=== PATIENT | female | born 1960 | race Caucasian/White ===

== ENCOUNTER 2017-03-14 01:23 | Emergency (ER) | payer OTHER ==
[~2017-03-14] VITALS: Ht 162.6 cm; Wt 75.0 kg
[~2017-03-14 01:23] MED LIST: GABA300C16 PO; GLIP-95 PO; LISI20TA11 PO; METF500T4 PO
[2017-03-14 01:34] VITALS: Ht 162.6 cm; Wt 75.0 kg
[2017-03-14] MEDS ORDERED: KETOROLAC 30 MG INJ IM STA (02:54)
[2017-03-14] MEDS ORDERED: OXYCODONE/ACETAMINOPHEN (5/325) TAB PO ONE (03:00)
[2017-03-14] MEDS ORDERED: KETOROLAC 30 MG INJ IV ONE (03:23)
[2017-03-14 03:30] LABS: ADD UMIC NO; UR ASCORBIC ACID NEGATIVE (NEGATIVE); UR BILIRUBIN (Dip) NEGATIVE (NEGATIVE); UR BLOOD (Dip) NEGATIVE (NEGATIVE); UR CLARITY CLEAR (CLEAR); UR COLOR YELLOW (YELLOW); UR GLUCOSE (Dip) NEGATIVE (NEGATIVE); UR KETONES (Dip) NEGATIVE (NEGATIVE); UR LEUKOCYTE ESTERASE (Dip) NEGATIVE Leu/ul (NEGATIVE); UR NITRITE (Dip) NEGATIVE (NEGATIVE); UR RBC 0 /HPF (0-5); UR SPECIFIC GRAVITY (Dip) 1.009 (1.003-1.030); UR TOTAL PROTEIN (Dip) NEGATIVE (NEGATIVE); UR UROBILINOGEN (Dip) NEGATIVE (NEGATIVE)
--- NOTE | 2017-03-14 04:08 | RADRPT ---
PROCEDURE: CT Abdomen and pelvis without contrast. CLINICAL INDICATION: Abdominal pain. TECHNIQUE: CT scan of the abdomen and pelvis was performed on a multi-detector high-resolution CT scanner. Contiguous axial images were obtained from the lung bases to the ischial tuberosities wit hout intravenous contrast. Coronal and sagittal reformatted images were also obtained. Images were reviewed on the PACS workstation. One or more of the following dose reduction techniques were used: - Automated exposure control. - Adjustment of the mA and/or kV according to patient size. - Use of iterative reconstruction technique. Exam CTD/vol = 13.11 mGy. Total exam DLP = 795.51 mGy-cm. COMPARISON: None. FINDINGS: Evaluation of the lung bases demonstrates minimal bibasilar atelectasis. Abdomen: The liver is normal in size. There is no focal mass or dilatation of the biliary tree. T he gallbladder is not distended. The spleen, pancreas and bilateral adrenal glands are within sarita l limits. Bilateral kidneys are normal in size with no contour deforming mass identified. There is a 1 mm calculus within the lower pole of the right kidney. There is no radiopaque ureteral calculu s identified. There is no hydronephrosis or hydroureter. There is no retroperitoneal adenopathy. The abdominal aorta is of normal caliber with scattered atherosclerotic calcifications. There is moderate retained stool within the colon. There is no bowel obstruction or free air. A no rmal appendix is identified. There are scattered colonic diverticuli without evidence of diverticul itis. There is no ascites. Pelvis: The bladder is unremarkable. There are partially calcified uterine fibroids. There is a s mall left inguinal hernia containing fat. There is no significant pelvic adenopathy or free fluid. Evaluation of the osseous structures demonstrates no suspicious lytic or blastic lesion. IMPRESSION: No acute abnormality identified within the abdomen and pelvis. Moderate retained stool within the colon. Scattered colonic diverticuli without evidence of diverticulitis. Nonobstructing right renal calculus. Partially calcified uterine fibroids. Small left inguinal hernia containing fat. Vascular calcifications reflective of atherosclerosis. .Boby Suarez MD, Date Time Electronically viewed and signed by .Boby Suarez MD, on 03/14/2017 04:08 .T/
[2017-03-14 04:18] LABS: ABNORMAL IP MESSAGE 1; BASOPHIL # 0.1 10^3/ul (0.0-0.1); BASOPHILS % 0.6 % (0.0-2.0); EOSINOPHILS # 0.3 10^3/ul (0.0-0.5); EOSINOPHILS % 2.7 % (0.0-7.0); HEMATOCRIT 39.8 % (37.0-47.0); HEMOGLOBIN 13.1 g/dl (12.0-16.0); LYMPHOCYTES # 5.4 10^3/ul (0.8-2.9); LYMPHOCYTES % 52.3 % (15.0-51.0); MEAN CORPUSCULAR HEMOGLOBIN 30.3 pg (29.0-33.0); MEAN CORPUSCULAR HGB CONC 32.9 g/dl (32.0-37.0); MEAN CORPUSCULAR VOLUME 91.9 fl (82.0-101.0); MEAN PLATELET VOLUME 10.4 fl (7.4-10.4); MONOCYTE # 0.7 10^3/ul (0.3-0.9); MONOCYTES % 6.4 % (0.0-11.0); NEUTROPHIL # 3.9 10^3/ul (1.6-7.5); NEUTROPHILS % 37.8 % (39.0-77.0); PLATELET COUNT 457 10^3/UL (140-415); RED BLOOD COUNT 4.33 10^6/ul (4.20-5.40); RED CELL DISTRIBUTION WIDTH 12.5 % (11.5-14.5); WHITE BLOOD COUNT 10.4 10^3/ul (4.8-10.8)
[2017-03-14 04:22] LABS: POSITIVE DIFF @See below
[2017-03-14 04:36] LABS: ALBUMIN/GLOBULIN RATIO 1.25; BILIRUBIN,INDIRECT 0.2 mg/dl (0-1.1); BILIRUBIN,TOTAL 0.2 mg/dl (0.2-1.3); CALCIUM 10.1 mg/dl (8.4-10.2); CREATININE 0.69 mg/dl (0.44-1.00); POTASSIUM 3.9 mmol/L (3.5-5.1)
[2017-03-14] MEDS ORDERED: IBUP-1542 PO (04:42)
[2017-03-14 05:06] VITALS: BP 145/82; PULSE 71; RESP 18; TEMP 98.1
[2017-03-14] MEDS ORDERED: OXYC-279 PO (05:12)
--- NOTE | 2017-03-14 05:21 | ERD ---
ER Documentation Chief Complaint Date/Time DATE: 03/14/17 TIME: 05:12 Chief Complaint lower abdominal x1 week, No N/V. HPI 56-year-old woman presents with 1 week of lower abdominal pain, in the mid pelvic region, constant, nonexertional nonradiating. She has had no nausea or vomiting, no diarrhea, no blood per rectum or melena, no dysuria, no chest pain or shortness of breath, no weight loss. ROS All systems reviewed and are negative except as per history of present illness. Medications Home Meds Active Scripts Oxycodone HCl/Acetaminophen (Percocet 5-325 mg Tablet) 1 Each Tablet, 1 EACH PO TID for PAIN, #12 TAB Prov:YAIR MOYA MD 03/14/17 Ibuprofen* (Ibuprofen*) 600 Mg Tablet, 600 MG PO Q8 for PAIN AND/OR INFLAMMATION , #30 TAB Prov:YAIR MOYA MD 03/14/17 Gabapentin* (Gabapentin*) 300 Mg Capsule, 300 MG PO TID, #30 CAP On day 1, take 1 tab once a day. On day 2, take 1 tab twice a day. Then 1 tab Three times a day. Prov:LAURA GRIFFITH VOICE INTERCEPT TECHNICIAN 08/05/16 Reported Medications Metformin Hcl* (Metformin Hcl*) 500 Mg Tablet, 500 MG PO WITH BREAKFAST DINNE, # 60 TAB 08/07/16 Lisinopril* (Lisinopril*) 20 Mg Tablet, 20 MG PO DAILY, #30 TAB 08/07/16 Glipizide* (Glipizide*) 10 Mg Tablet, 10 MG PO DAILY, TAB 08/07/16 Allergies Allergies: Coded Allergies: No Known Allergies (Unverified Allergy, Unknown, 03/14/17) PMhx/Soc Hypertension, diabetes mellitus History of Surgery: No Anesthesia Reaction: No Hx Neurological Disorder: No Hx Respiratory Disorders: No Hx Cardiac Disorders: No Hx Psychiatric Problems: No Hx Miscellaneous Medical Probl: Yes (diabetes type 2) Hx Alcohol Use: No Hx Substance Use: No Hx Tobacco Use: No Smoking Status: Never smoker FmHx Family History: No diabetes Physical Exam Vitals Vital Signs Date Time Temp Pulse Resp B/P Pulse Ox O2 Delivery O2 Flow Rate FiO2 03/14/17 05:06 98.1 71 18 145/82 99 Room Air 03/14/17 01:34 97.0 65 20 180/96 98 Physical Exam GENERAL: Well-developed, well-nourished, mild pain, afebrile HEENT: Moist mucous membranes, pink conjunctiva, no cervical spine tenderness or step-off deformities, no goiter, no jaundice or icterus, extraocular movements intact without pain. No submandibular induration, and no pharyngeal erythema NEURO: Alert and oriented 3, cranial nerves II through XII intact bilaterally, pupils equal round reactive to light, no focal deficits or facial asymmetry, sensation intact distally Strength 5/5 in upper and lower extremities bilaterally CARDIAC: Regular rate and rhythm, no murmurs rubs or gallops LUNGS: Clear bilaterally no wheezing crackles or stridor ABDOMEN: Soft nontender, no guarding, no rigidity, no rebound, no psoas sign no obturator sign. Normoactive bowel sounds SKIN: Warm and dry to touch, no abrasions, contusions, or hematomas, no lacerations, no ecchymosis, no target lesions, and without ulcers EXTREMITIES: No clubbing cyanosis or edema, calves are bilaterally symmetrical, no Homans sign, no popliteal cord sign. Distal pulses equal and bilateral PSYCH: Normal affect without agitation or irritability Result Diagram: 03/14/17 0340 03/14/17 0340 Results 24 hrs Laboratory Tests Test 03/14/17 03:00 03/14/17 03:40 Urine Color YELLOW Urine Clarity CLEAR Urine pH 6.0 Urine Specific [place] 1.009 Urine Ketones NEGATIVEmg/dL Urine Nitrite NEGATIVEmg/dL Urine Bilirubin NEGATIVEmg/dL Urine Urobilinogen NEGATIVEmg/dL Urine Leukocyte Esterase NEGATIVELeu/ul Urine Microscopic RBC 0/HPF Urine Microscopic WBC 1/HPF Urine Hemoglobin NEGATIVEmg/dL Urine Glucose NEGATIVEmg/dL Urine Total Protein NEGATIVEmg/dl White Blood Count 10.410^3/ul Red Blood Count 4.3310^6/ul Hemoglobin 13.1g/dl Hematocrit 39.8% Mean Corpuscular Volume 91.9fl Mean Corpuscular Hemoglobin 30.3pg Mean Corpuscular Hemoglobin Concent 32.9g/dl Red Cell Distribution Width 12.5% Platelet Count 31535^3/UL Mean Platelet Volume 10.4fl Neutrophils % 37.8% Lymphocytes % 52.3% Monocytes % 6.4% Eosinophils % 2.7% Basophils % 0.6% Nucleated Red Blood Cells % 0.0/100WBC Neutrophils # 3.910^3/ul Lymphocytes # 5.410^3/ul Monocytes # 0.710^3/ul Eosinophils # 0.310^3/ul Basophils # 0.110^3/ul Nucleated Red Blood Cells # 0.010^3/ul Sodium Level 142mmol/L Potassium Level 3.9mmol/L Chloride Level 98mmol/L Carbon Dioxide Level 27mmol/L Anion Gap 21 Blood Urea Nitrogen 14mg/dl Creatinine 0.69mg/dl Glucose Level 113mg/dl Calcium Level 10.1mg/dl Total Bilirubin 0.2mg/dl Direct Bilirubin 0.00mg/dl Indirect Bilirubin 0.2mg/dl Aspartate Amino Transf (AST/SGOT) 34IU/L Alanine Aminotransferase (ALT/SGPT) 32IU/L Alkaline Phosphatase 171IU/L Total Protein 9.0g/dl Albumin 5.0g/dl Globulin 4.00g/dl Albumin/Globulin Ratio 1.25 Lipase 236U/L Current Medications Medications (Trade) Dose Ordered Sig/Damian Route PRN Reason Start Time Stop Time Status Last Admin Dose Admin Ketorolac Tromethamine (Toradol) 30 mg ONCE STAT IM 03/14/17 02:54 03/14/17 02:55 DC Oxycodone/ Acetaminophen (Percocet (5/ 325)) 1 tab ONCE ONCE PO 03/14/17 03:00 03/14/17 03:01 DC 03/14/17 03:07 Ketorolac Tromethamine (Toradol) 30 mg ONCE ONCE IV 03/14/17 03:23 03/14/17 03:24 DC 03/14/17 03:10 Procedures/MDM IV line was established patient was placed on director cardiac rhythm strip revealed a sinus rhythm at about 70 bpm with upright P and T waves. Patient was afebrile. I administered Toradol 15 mg IV and Percocet [address] scan of the abdomen and pelvis was performed with multiple findings which revealed umbilical hernia, right renal calculus, calcified fibroid uterus, diverticulosis, although there was no acute inflammatory or infectious pathology noted. CBC and electrolytes are normal, liver function tests were normal. Differential diagnoses considered, included but not limited to acute coronary syndrome, pulmonary embolism, aortic dissection, abdominal aortic aneurysm, sepsis, stroke, meningitis, encephalitis, pneumonia, appendicitis, cholecystitis , bowel obstruction, pyelonephritis, nephrolithiasis, cystitis, as well as metabolic, hematologic, and electrolyte abnormalities. As well as abscess, cellulitis, fractures, and dislocations. Patient feels much better at this time, and vital signs are normal, symptoms have improved. I did give strict instructions to return to the ED if symptoms continue or worsen, patient will otherwise follow-up with primary care physician. Patient understood instructions and agreed to plan. Disclaimer: Inadvertent spelling and grammatical errors are likely due to EHR/ dictation software use and do not reflect on the overall quality of patient care. Also, please note that the electronic time recorded on this note does not necessarily reflect the actual time of the patient encounter. Departure Diagnosis: Primary Impression: Inguinal hernia Obstruction and gangrene presence: without obstruction or gangrene Laterality : unilateral Recurrence: recurrent Qualified Code: K40.91 - Unilateral recurrent inguinal hernia without obstruction or gangrene Additional Impression: Abdominal pain Abdominal location: lower abdomen, unspecified Qualified Code: R10.30 - Lower abdominal pain Condition: Good Patient Instructions: Abdominal Pain, Hernia (Inguinal, Ventral, Umbilical) Referrals: CHARLES DEGROOT DAVID MD Mar 14, 2017 05:21
== END 2017-03-14 05:14 | disposition home or self-care (01) ==
LOC: E/R 01:23
DX: K40.91 Unilateral inguinal hernia, without obstruction or gangrene, recurrent (principal); E11.9 Type 2 diabetes mellitus without complications; I10 Essential (primary) hypertension; Z79.84 Long term (current) use of oral hypoglycemic drugs
CPT/HCPCS: 36415; 74176; 80053; 81003; 83690; 85025; 96374; J1885; Z7502; Z7610

== ENCOUNTER 2017-05-04 17:52 | Emergency (ER) | payer OTHER ==
[~2017-05-04] VITALS: Ht 167.6 cm; Wt 75.0 kg
[~2017-05-04 17:52] MED LIST changes: +ACET500C5 PO; +IBUP-1542 PO; +OXYC-279 PO
[2017-05-04 18:03] VITALS: Ht 167.6 cm; Wt 75.0 kg
[2017-05-04] MEDS ORDERED: SOD CHLORIDE 0.9% 1,000 ML IV STA (21:37)
[2017-05-04 22:37] LABS: BASOPHIL # 0.1 10^3/ul (0.0-0.1); BASOPHILS % 0.5 % (0.0-2.0); EOSINOPHILS # 0.2 10^3/ul (0.0-0.5); EOSINOPHILS % 1.7 % (0.0-7.0); HEMATOCRIT 36.7 % (37.0-47.0); HEMOGLOBIN 12.3 g/dl (12.0-16.0); LYMPHOCYTES # 4.6 10^3/ul (0.8-2.9); LYMPHOCYTES % 45.4 % (15.0-51.0); MEAN CORPUSCULAR HEMOGLOBIN 31.1 pg (29.0-33.0); MEAN CORPUSCULAR HGB CONC 33.5 g/dl (32.0-37.0); MEAN CORPUSCULAR VOLUME 92.9 fl (82.0-101.0); MEAN PLATELET VOLUME 9.5 fl (7.4-10.4); MONOCYTE # 0.5 10^3/ul (0.3-0.9); MONOCYTES % 5.1 % (0.0-11.0); NEUTROPHIL # 4.7 10^3/ul (1.6-7.5); PLATELET COUNT 483 10^3/UL (140-415); RED BLOOD COUNT 3.95 10^6/ul (4.20-5.40)
[2017-05-04 22:50] LABS: ADD UMIC YES; UR ASCORBIC ACID NEGATIVE (NEGATIVE); UR BILIRUBIN (Dip) NEGATIVE (NEGATIVE); UR BLOOD (Dip) NEGATIVE (NEGATIVE); UR CLARITY SLIGHTLY CLOUDY (CLEAR); UR COLOR AMBER (YELLOW); UR GLUCOSE (Dip) 1+ mg/dL (NEGATIVE); UR KETONES (Dip) NEGATIVE (NEGATIVE); UR LEUKOCYTE ESTERASE (Dip) NEGATIVE Leu/ul (NEGATIVE); UR MUCUS FEW /HPF (NONE SEEN); UR NITRITE (Dip) NEGATIVE (NEGATIVE); UR RBC 1 /HPF (0-5); UR SPECIFIC GRAVITY (Dip) 1.026 (1.003-1.030); UR TOTAL PROTEIN (Dip) 1+ mg/dl (NEGATIVE); UR UROBILINOGEN (Dip) 1+ mg/dL (NEGATIVE)
[2017-05-04 22:56] LABS: ALBUMIN 4.3 g/dl (3.3-4.9); ALBUMIN/GLOBULIN RATIO 1.3; BILIRUBIN,INDIRECT 0.2 mg/dl (0-1.1); BILIRUBIN,TOTAL 0.2 mg/dl (0.2-1.3); CALCIUM 9.9 mg/dl (8.4-10.2); CREATININE 0.76 mg/dl (0.44-1.00); POTASSIUM 4.5 mmol/L (3.5-5.1); TOTAL PROTEIN 7.6 g/dl (6.1-8.1)
[2017-05-04] MEDS ORDERED: KETOROLAC 30 MG INJ ONE (22:57)
[2017-05-04] MEDS ORDERED: KETOROLAC 30 MG INJ IV ONE (23:00)
[2017-05-04] MEDS ORDERED: IOHEXOL 300MG/ML 150 ML BTL ONE (23:09)
[2017-05-04] MEDS ORDERED: SOD CHLORIDE 0.9% 100 ML ONE (23:09)
--- NOTE | 2017-05-04 23:39 | ERA ---
ER Documentation Chief Complaint Date/Time DATE: 05/04/17 TIME: 23:39 Chief Complaint SEVERE PAIN ON LOWER ABDOMEN, HX OF HERNIA SURGERY 04/30/17 HPI This is a 56-year-old female with a past medical history of diabetes, hypertension and a left inguinal hernia that was repaired 3 days ago is presenting with persistent pain at the incision site. Patient does not endorse any infectious symptoms. She has not had a fever or chills. She denies any increased swelling or redness or induration at the site. She has not noticed any fluctuance or purulence. She endorses pain with movement at the site. She has not been taking her oxycodone regularly throughout the day. She has an appointment scheduled with her surgeon on Saturday, but she wanted to be checked out sooner than this given her pain. ROS All systems reviewed and are negative except as per history of present illness. Medications Home Meds Active Scripts Acetaminophen* (Tylophen*) 500 Mg Capsule, 1 CAP PO Q6H Y for PAIN AND OR ELEVATED TEMP, #20 CAP Prov:FORTINO ALCANTAR PA-C 03/30/17 Oxycodone HCl/Acetaminophen (Percocet 5-325 mg Tablet) 1 Each Tablet, 1 EACH PO TID for PAIN, #12 TAB Prov:YAIR MOYA MD 03/14/17 Ibuprofen* (Ibuprofen*) 600 Mg Tablet, 600 MG PO Q8 for PAIN AND/OR INFLAMMATION , #30 TAB Prov:YAIR MOYA MD 03/14/17 Gabapentin* (Gabapentin*) 300 Mg Capsule, 300 MG PO TID, #30 CAP On day 1, take 1 tab once a day. On day 2, take 1 tab twice a day. Then 1 tab Three times a day. Prov:LAURA GRIFFITH NP 08/05/16 Reported Medications Metformin Hcl* (Metformin Hcl*) 500 Mg Tablet, 500 MG PO WITH BREAKFAST DINNE, # 60 TAB 08/07/16 Lisinopril* (Lisinopril*) 20 Mg Tablet, 20 MG PO DAILY, #30 TAB 08/07/16 Glipizide* (Glipizide*) 10 Mg Tablet, 10 MG PO DAILY, TAB 08/07/16 Allergies Allergies: Coded Allergies: No Known Allergies (Unverified Allergy, Unknown, 05/04/17) PMhx/Soc History of Surgery: Yes (inguinial hernia repair) Anesthesia Reaction: No Hx Neurological Disorder: No Hx Respiratory Disorders: No Hx Psychiatric Problems: No Hx Miscellaneous Medical Probl: Yes (diabetes type 2) Hx Alcohol Use: No Hx Substance Use: No Hx Tobacco Use: No Smoking Status: Never smoker FmHx Family History: diabetes Physical Exam Vitals Vital Signs Date Time Temp Pulse Resp B/P Pulse Ox O2 Delivery O2 Flow Rate FiO2 05/05/17 01:00 61 16 142/97 100 Room Air 05/04/17 23:00 62 17 162/76 100 Room Air 05/04/17 21:40 68 16 162/96 100 Room Air 05/04/17 18:03 98.0 74 20 190/88 99 Physical Exam Const: No apparent distress, well-developed, well-nourished Head: Atraumatic Eyes: Normal Conjunctiva ENT: Normal External Ears, Nose and Mouth. Neck: Full range of motion..~ No meningismus. Resp: Clear to auscultation bilaterally Cardio: Regular rate and rhythm, no murmurs Abd: Soft, non distended. Mild tenderness at her left groin incision site without erythema or induration or crepitus or purulence or edema. Normal bowel sounds Skin: No petechiae or rashes Back: No midline or flank tenderness Ext: No cyanosis, or edema Neur: Awake and alert, normal sensation and strength and coordination Psych: Normal Mood and Affect Result Diagram: 05/04/17219905/04/172199 Results 24 hrs Laboratory Tests Test 05/04/17 22:00 White Blood Count 10.010^3/ul Red Blood Count 3.9510^6/ul Hemoglobin 12.3g/dl Hematocrit 36.7% Mean Corpuscular Volume 92.9fl Mean Corpuscular Hemoglobin 31.1pg Mean Corpuscular Hemoglobin Concent 33.5g/dl Red Cell Distribution Width 12.0% Platelet Count 81982^3/UL Mean Platelet Volume 9.5fl Neutrophils % 47.0% Lymphocytes % 45.4% Monocytes % 5.1% Eosinophils % 1.7% Basophils % 0.5% Nucleated Red Blood Cells % 0.0/100WBC Neutrophils # 4.710^3/ul Lymphocytes # 4.610^3/ul Monocytes # 0.510^3/ul Eosinophils # 0.210^3/ul Basophils # 0.110^3/ul Nucleated Red Blood Cells # 0.010^3/ul Urine Color RUSTY Urine Clarity SLIGHTLY CLOUDY Urine pH 5.0 Urine Specific [place] 1.026 Urine Ketones NEGATIVEmg/dL Urine Nitrite NEGATIVEmg/dL Urine Bilirubin NEGATIVEmg/dL Urine Urobilinogen 1+mg/dL Urine Leukocyte Esterase NEGATIVELeu/ul Urine Microscopic RBC 1/HPF Urine Microscopic WBC 1/HPF Urine Mucus FEW/HPF Urine Hemoglobin NEGATIVEmg/dL Urine Glucose 1+mg/dL Urine Total Protein 1+mg/dl Sodium Level 137mmol/L Potassium Level 4.5mmol/L Chloride Level 99mmol/L Carbon Dioxide Level 28mmol/L Anion Gap 15 Blood Urea Nitrogen 22mg/dl Creatinine 0.76mg/dl Glucose Level 95mg/dl Lactic Acid Level 1.3mmol/L Calcium Level 9.9mg/dl Total Bilirubin 0.2mg/dl Direct Bilirubin 0.00mg/dl Indirect Bilirubin 0.2mg/dl Aspartate Amino Transf (AST/SGOT) 18IU/L Alanine Aminotransferase (ALT/SGPT) 28IU/L Alkaline Phosphatase 117IU/L Total Protein 7.6g/dl Albumin 4.3g/dl Globulin 3.30g/dl Albumin/Globulin Ratio 1.30 Lipase 189U/L Current Medications Medications (Trade) Dose Ordered Sig/Damian Route PRN Reason Start Time Stop Time Status Last Admin Dose Admin Sodium Chloride (NS) 1,000 ml @ 1,000 mls/hr Q1H STAT IV 05/04/17 21:37 05/04/17 22:36 DC 05/04/17 22:06 Ketorolac Tromethamine (Toradol) 30 mg ONCE ONCE IV 05/04/17 23:00 05/04/17 23:01 DC 05/04/17 23:04 Ketorolac Tromethamine (Toradol) 30 mg STK-MED ONCE .ROUTE 05/04/17 22:57 05/04/17 22:58 DC IV Flush 10 ml 10 ml STK-MED ONCE .ROUTE 05/04/17 23:09 05/04/17 23:10 DC 05/04/17 23:20 Sodium Chloride (NS) 100 ml @ ud STK-MED ONCE .ROUTE 05/04/17 23:09 9/16/17 23:10 DC 05/04/17 23:20 Iohexol (Omnipaque 300mg/ ml) 150 ml STK-MED ONCE .ROUTE 05/04/17 23:09 05/04/17 23:10 DC 05/04/17 23:20 Procedures/MDM MDM The patient is having pain at a recent surgical excision site. Her presentation warrants further workup as described below. Labs The patient has no leukocytosis or left shift. She is afebrile and I do not suspect a systemic infection. CBC is essentially unremarkable otherwise. The patient's CMP is likewise unremarkable. She has a mild elevation in her BUN which may indicate a component of dehydration. However, the patient does not appear clinically dehydrated. CT IMPRESSION: 1. Postoperative change related to left inguinal hernia repair with scattered foci of simple-appearing fluid, blood products, and subcutaneous emphysema extending into the left inguinal canal and minimally into the left lower quadrant peritoneal cavity adjacent to the internal inguinal ring. Superimposed infection is not excluded. Small amount of subcutaneous emphysema along the left lateral abdominal wall to the mid abdomen. 2. Leiomyomatous uterus. 3. Scattered colonic diverticuli without evidence of diverticulitis. 4. Hepatic steatosis. 5. Vascular calcifications consistent with atherosclerosis. Electronically viewed and signed by .Francisco Amin MD, MD on 05/05/2017 00:03 Tratement/Disposition I suspect that the patient is having standard postoperative pain. Based on her history, I believe that she is under dosing her narcotic medication to help with the pain. It is reassuring that the patient does not have any pain when she does not move her leg. I do not see any clinical evidence of an infection. The patient does not have any hematologic evidence of an infection at this time. Her vital signs are stable and she is afebrile. The CT scan does not rule out infection, but the patient's scan is more likely attributed to the recent surgery that she had. She has no erythema or induration or edema or purulence or crepitus or fluctuance to suggest an infection in the area. The patient was instructed to utilize her medications as prescribed. She is given precautions with which to return to the emergency department, including any signs of a brewing infection. She will call her surgeon as soon as possible to confirm her appointment on Saturday if she is unable to be seen on Saturday. Departure Diagnosis: Primary Impression: Inguinal hernia Qualified Code: K40.90 - Inguinal hernia without obstruction or gangrene, recurrence not specified, unspecified laterality Additional Impressions: S/P hernia repair Post-op pain Condition: Stable ISSA CALL MD May 04, 2017 23:39
--- NOTE | 2017-05-05 00:03 | RADRPT ---
PROCEDURE: CT abdomen and pelvis with contrast. CLINICAL INDICATION: Inguinal hernia repair with abdominal pain. TECHNIQUE: CT scan of the abdomen and pelvis with contrast was performed after the uneventful intrav enous administration of 100 cc of Omnipaque-300. Coronal and sagittal reformatted images were obtain ed from the axial source images. The total exam CTDI equals 13.36 mGy and the total exam DLP equals 826.89 mGy-cm. One or more of the following dose reduction techniques were used: - Automated exposure control. - Adjustment of the mA and/or kV according to patient size. - Use of iterative reconstruction technique. COMPARISON: CT dated 03/14/2017. Pelvic ultrasound dated 03/30/2017. FINDINGS: Visualized lower thorax: The visualized lung bases are clear. The visualized heart is unremarkable. Hepatobiliary system and spleen: There is diffuse fatty infiltration of the liver. No focal hepatic lesion is identified. There is no intra or extrahepatic biliary ductal dilatation. The gallbladder is unremarkable. The spleen is unremarkable. The pancreas is unremarkable. Adrenal glands and genitourinary system: The adrenal glands are unremarkable. There are no renal ma sses or hydronephrosis. The urinary bladder is unremarkable. There are multiple calcified uterine f ibroids. There are no adnexal masses. Gastrointestinal system: The stomach and small bowel are unremarkable. There are scattered colonic diverticuli without evidence of diverticulitis. The appendix is in the right lower quadrant and is u nremarkable. Peritoneum, soft tissues, vascular system, and lymphatics: There is postoperative change related to left inguinal hernia repair with scattered foci of simple-appearing fluid, blood products, and subcu taneous emphysema extending into the left inguinal canal and minimally extending into the left lower quadrant peritoneal cavity adjacent to the internal inguinal ring. There is also a small subcutaneo us emphysema along the left anterolateral abdominal wall extending into the lower abdomen. There is no focal drainable collection within the abdomen or pelvis. There is no mesenteric or retroperitonea l adenopathy. There are atherosclerotic changes of the aorta, which is nonaneurysmal. Musculoskeletal system: There is mild to moderate multilevel degenerative enthesopathy. There are n o concerning osseous lesions. IMPRESSION: 1. Postoperative change related to left inguinal hernia repair with scattered foci of simple-appear ing fluid, blood products, and subcutaneous emphysema extending into the left inguinal canal and min imally into the left lower quadrant peritoneal cavity adjacent to the internal inguinal ring. Superi mposed infection is not excluded. Small amount of subcutaneous emphysema along the left lateral abdo hetal wall to the mid abdomen. 2. Leiomyomatous uterus. 3. Scattered colonic diverticuli without evidence of diverticulitis. 4. Hepatic steatosis. 5. Vascular calcifications consistent with atherosclerosis. RPTAT: HLBP .Francisco Amin MD, MD Date Time Electronically viewed and signed by .Francisco Amin MD, on 05/05/2017 00:03 .P/
[2017-05-05 01:00] VITALS: BP 142/97; PULSE 61; RESP 16
== END 2017-05-05 01:23 | disposition home or self-care (01) ==
LOC: E/R 17:52
DX: K40.90 Unilateral inguinal hernia, without obstruction or gangrene, not specified as recurrent (principal); E11.9 Type 2 diabetes mellitus without complications; I10 Essential (primary) hypertension; Z79.84 Long term (current) use of oral hypoglycemic drugs; Z98.890 Other specified postprocedural states
CPT/HCPCS: 36415; 74177; 80053; 81001; 83605; 83690; 85025; 87086; 96374; J1885; J7030; Q9967; Z7502; Z7610

== ENCOUNTER 2018-12-27 17:49 | Emergency (ER) | payer OTHER ==
[~2018-12-27] VITALS: Ht 170.2 cm; Wt 75.0 kg
[~2018-12-27 17:49] MED LIST changes: -GLIP-95 PO; +GLIP10TA14 PO; +LISI-471 PO; -LISI20TA11 PO; +METF500T24 PO; -METF500T4 PO
[2018-12-27 18:07] VITALS: Ht 170.2 cm; Wt 75.0 kg
[2018-12-27] MEDS ORDERED: LIDOCAINE/MYLANTA 40 ML BTL PO STA (21:02)
[2018-12-27] MEDS ORDERED: FAMOTIDINE 20 MG TAB PO STA (21:02)
--- NOTE | 2018-12-27 21:08 | ERD ---
ER Documentation Chief Complaint Chief Complaint upper AP with nausea X 2.5 wks HPI This is a 58-year-old female who presents for evaluation of epigastric pain associated nausea now for the last 2 and half weeks. She was diagnosed with GERD by her primary care doctor, and started on ranitidine and Protonix. She has not expands much relief in her pain, she denies any chest pain shortness of breath, she has not had any vomiting or hematemesis. No prior GI surgeries. ROS All systems reviewed and are negative except as per history of present illness. Medications Home Meds Active Scripts Acetaminophen* (Tylophen*) 500 Mg Capsule, 1 CAP PO Q6H PRN for PAIN AND OR ELEVATED TEMP, #20 CAP Prov:FORTINO ALCANTAR PA-C 03/30/17 Oxycodone HCl/Acetaminophen (Percocet 5-325 mg Tablet) 1 Each Tablet, 1 EACH PO TID for PAIN, #12 TAB Prov:YAIR MOYA MD 03/14/17 Ibuprofen* (Ibuprofen*) 600 Mg Tablet, 600 MG PO Q8 for PAIN AND/OR INFLA MMATION, #30 TAB Prov:YAIR MOYA MD 03/14/17 Gabapentin* (Gabapentin*) 300 Mg Capsule, 300 MG PO TID, #30 CAP On day 1, take 1 tab once a day. On day 2, take 1 tab twice a day. Then 1 tab Three times a day. Prov:LAURA GRIFFITH [employer]INEER 08/05/16 Reported Medications Metformin Hcl* (Metformin Hcl*) 500 Mg Tablet, 500 MG PO WITH BREAKFAST DINNE, #60 TAB 08/07/16 Lisinopril* (Lisinopril*) 20 Mg Tablet, 20 MG PO DAILY, #30 TAB 08/07/16 Glipizide* (Glipizide*) 10 Mg Tablet, 10 MG PO DAILY, TAB 08/07/16 Allergies Allergies: Coded Allergies: No Known Allergies (Unverified Allergy, Unknown, 05/04/17) PMhx/Soc History of Surgery: Yes (inguinial hernia repair) Anesthesia Reaction: No Hx Neurological Disorder: No Hx Respiratory Disorders: No Hx Psychiatric Problems: No Hx Miscellaneous Medical Probl: Yes (diabetes type 2) Hx Alcohol Use: No Hx Substance Use: No Hx Tobacco Use: No Physical Exam Vitals Vital Signs Date Temp Pulse Resp B/P (MAP) Pulse Ox O2 O2 Flow FiO2 Time Delivery Rate 12/27/18 98.2 64 16 164/83 96 Room Air 22:41 (110) 12/27/18 98.2 79 18 199/83 98 18:07 (121) Physical Exam Const: No acute distress Head: Atraumatic Eyes: Normal Conjunctiva ENT: Normal External Ears, Nose and Mouth. Neck: Full range of motion. No meningismus. Resp: Clear to auscultation bilaterally Cardio: Regular rate and rhythm, no murmurs Abd: Soft, mild epigastric tenderness, no rebound or guarding, negative Cool sign, non distended. Normal bowel sounds Skin: No petechiae or rashes Back: No midline or flank tenderness Ext: No cyanosis, or edema Neur: Awake and alert Psych: Normal Mood and Affect Result Diagram: 12/27/18214812/27/182148 Results 24 hrs Laboratory Tests Test 12/27/18 21:49 12/27/18 21:50 White Blood Count 10.6 10^3/ul Red Blood Count 4.15 10^6/ul Hemoglobin 12.7 g/dl Hematocrit 39.2 % Mean Corpuscular Volume 94.5 fl Mean Corpuscular Hemoglobin 30.6 pg Mean Corpuscular Hemoglobin Concent 32.4 g/dl Red Cell Distribution Width 12.1 % Platelet Count 417 10^3/UL Mean Platelet Volume 10.0 fl Immature Granulocytes % 0.300 % Neutrophils % 55.2 % Lymphocytes % 36.4 % Monocytes % 6.8 % Eosinophils % 0.9 % Basophils % 0.4 % Nucleated Red Blood Cells % 0.0 /100WBC Immature Granulocytes # 0.030 10^3/ul Neutrophils # 5.8 10^3/ul Lymphocytes # 3.8 10^3/ul Monocytes # 0.7 10^3/ul Eosinophils # 0.1 10^3/ul Basophils # 0.0 10^3/ul Nucleated Red Blood Cells # 0.0 10^3/ul Sodium Level 140 mmol/L Potassium Level 4.0 mmol/L Chloride Level 102 mmol/L Carbon Dioxide Level 27 mmol/L Anion Gap 11 Blood Urea Nitrogen 19 mg/dl Creatinine 0.67 mg/dl Est Glomerular Filtrat Rate mL/min > 60 mL/min Glucose Level 97 mg/dl Calcium Level 9.7 mg/dl Total Bilirubin 0.2 mg/dl Direct Bilirubin 0.00 mg/dl Indirect Bilirubin 0.2 mg/dl Aspartate Amino Transf (AST/SGOT) 27 IU/L Alanine Aminotransferase (ALT/SGPT) 20 IU/L Alkaline Phosphatase 189 IU/L Troponin I < 0.012 ng/ml Total Protein 8.0 g/dl Albumin 4.3 g/dl Globulin 3.70 g/dl Albumin/Globulin Ratio 1.16 Lipase 209 U/L Urine Color COLORLESS Urine Clarity CLEAR Urine pH 8.0 Urine Specific [place] 1.008 Urine Ketones NEGATIVE mg/dL Urine Nitrite NEGATIVE mg/dL Urine Bilirubin NEGATIVE mg/dL Urine Urobilinogen NEGATIVE mg/dL Urine Leukocyte Esterase NEGATIVE Joe/ul Urine Hemoglobin NEGATIVE mg/dL Urine Glucose NEGATIVE mg/dL Urine Total Protein NEGATIVE mg/dl Current Medications Medications Dose Sig/Damian Start Time Status Last (Trade) Ordered Route PRN Stop Time Admin Dose Reason Admin Famotidine 20 mg ONCE STAT 12/27/18 DC 12/27/18 (Pepcid) PO 21:02 21:43 12/27/18 21:04 40 ml ONCE STAT 12/27/18 DC 12/27/18 Miscellaneous PO 21:02 21:43 Medication 12/27/18 21:04 (Gi Cocktail (2)) CBC: no e/o of systemic infection or severe anemia CMP: no e/o severe acidosis, alkalosis, renal failure, diabetic ketoacidosis, liver disease Lipase: no e/o pancreatitis PT/INR: normal coagulation Urine: no e/o acute infection or hematuria EKG: Rate/Rhythm: Normal Sinus Rhythm QRS, ST, T-waves: No changes consistent w/ acute ischemia Impression: No evidence of ischemia or arrhythmia [place] [id number] Radiology Main Line: [phone] DIAGNOSTIC IMAGING REPORT Patient: TAMANNA MEADOWS : 1960 Age: 58 Sex: F MR #: [id number] DOS: 12/27/182101 Ordering MD: YAIR FRY MD Location: E/R Room/Bed: PROCEDURE: CT abdomen and pelvis without contrast. CLINICAL INDICATION: 58-year-old female. Abdominal pain. TECHNIQUE: CT scan of the abdomen and pelvis without contrast was performed on a multi-slice CT scanner utilizing axial imaging from the lung bases through the pubis symphysis. One or more the following does reduction techniques were utilized: Automated exposure control, adjustment of the mA/ or kV according to patient's size, or use of iterative reconstruction technique. Sagittal and coronal reformatted images were made. DICOM images are available for review. The CTDIvol is 11.84 mGy and the DLP is 702.23 mGycm. COMPARISON: CT abdomen pelvis 05/04/2017 FINDINGS: CT abdomen Visualized lung bases: Dependent changes posterior lower lobes. No significant pleural or pericardial effusion. Liver: Limited evaluation without IV contrast. No gross lesion. Gallbladder and bile ducts: No calcified gallstones or pericholecystic fluid. No biliary ductal dilatation. Spleen: Normal appearance. Pancreas: Normal appearance. No ductal dilatation. No mass. No peripancreatic stranding. Adrenal glands: Normal appearance. Kidneys: Punctate nonobstructing calcified stone lower pole right kidney. No hydronephrosis. Vasculature: No abdominal aortic aneurysm. Calcified plaque present. Negative IVC. Lymph nodes: No adenopathy. GI: No hiatal hernia. Slightly prominent gas and stool containing splenic flexure. Prominent, stool-filled right colon. No evidence of obstruction or bowel wall thickening. Peritoneal cavity: No free fluid or free air. CT pelvis GI: Negative terminal ileum. Negative appendix. Sigmoid diverticulosis. Negative rectum. : Calcified uterine leiomyomas. The ovaries are not well visualized. Normal appearing distal ureters and partially filled urinary bladder. Peritoneal cavity: No free fluid or loculated fluid collections. Lymph nodes: No adenopathy. Osseous structures: No lytic or blastic lesions. IMPRESSION: 1. Punctate nonobstructing right lower pole renal stone. 2. Prominent stool-filled ascending colon and splenic flexure. No obstruction. 3. Calcified uterine leiomyomas. Ovaries not well visualized. RPTAT: [facility] Physician Jone Date Time Electronically viewed and signed by Physician Jone on 12/27/2018 22:43 RS/ CC: YAIR FRY MD [id number] Procedures/MDM This is a 58-year-old female presents for evaluation of epigastric pain. On exam patient has no peritoneal signs, no signs or symptoms surgical abdomen, no urinary symptoms. Suspect her symptoms are most likely GERD-like related, her CT abdomen pelvis showed no acute findings, she did have a right renal stone, she did not complain of flank pain or dysuria, at this point patient is stable for discharge home, at discharge she was in no distress. Departure Diagnosis: Primary Impression: Abdominal pain Abdominal location: unspecified location Qualified Codes: R10.9 - Unspecified abdominal pain Condition: Stable YAIR FRY MD December 27, 2018 21:08
[2018-12-27 23:47] VITALS: BP 142/86; PULSE 76; RESP 15
[2018-12-27] MEDS ORDERED: MAG-19 PO (23:47)
[2018-12-27] MEDS ORDERED: POLY17PO6 PO (23:47)
== END 2018-12-27 23:54 | disposition home or self-care (01) ==
LOC: E/R 17:49
DX: R10.9 Unspecified abdominal pain (principal); E11.9 Type 2 diabetes mellitus without complications; Z79.84 Long term (current) use of oral hypoglycemic drugs
CPT/HCPCS: 74176; 80053; 81003; 83690; 84484; 85025; 93005; Z7502; Z7610